=== PATIENT | female | born 1990 ===

== ENCOUNTER 2022-02-15 15:44 | Inpatient (IN) ==
[~2022-02-15] VITALS: Ht 167.6 cm; Wt 87.1 kg
[2022-02-15 16:24] VITALS: BP 111/65
[2022-02-15] MEDS ORDERED: KP P1TAB PO (16:37)
[2022-02-15] MEDS ORDERED: HOME MED LIST COMPLETE! XX SCH (16:40)
[2022-02-15] MEDS ORDERED: OXYTOCIN DRIP 30 UNITS in IV 1 EA IV PRN ×4 (17:25)
[2022-02-15] MEDS: LR 1,000 ML IV SCH (18:15)
[2022-02-15] MEDS: miSOPROStol 25MCG 1/4 TABLET PO SCH ×2 (18:15→22:43)
[2022-02-15 18:16] VITALS: BP 129/71
[2022-02-15 18:31] LABS: HEMOGLOBIN 11.4 g/dl (12.0-15.5); MEAN CORPUSCULAR HEMOGLOBIN 26.8 pg (27.0-33.0); MEAN CORPUSCULAR HGB CONC 32.6 g/dl (32.0-36.5); MEAN CORPUSCULAR VOLUME 82.2 fl (80.0-96.0); PLATELET COUNT, AUTOMATED 299 10^3/uL (150-450); RED BLOOD COUNT 4.26 10^6/uL (4.00-5.40); WHITE BLOOD COUNT 9.8 10^3/uL (4.0-10.0)
[2022-02-15 21:24] VITALS: BP 138/86
[2022-02-15 23:44] VITALS: BP 149/65
[2022-02-16] VITALS (12 sets, daily range): BP systolic 102–140; BP diastolic 50–86
[2022-02-16] MEDS: LR 1,000 ML IV SCH ×3 (05:11→21:05)
[2022-02-16] MEDS: miSOPROStol 25MCG 1/4 TABLET PO SCH (06:53)
[2022-02-16] MEDS: miSOPROStol 50MCG 1/2 TABLET PO SCH ×4 (10:34→22:19)
[2022-02-17] VITALS (25 sets, daily range): BP systolic 97–173; BP diastolic 53–100
[2022-02-17] MEDS: miSOPROStol 50MCG 1/2 TABLET PO SCH (02:25)
[2022-02-17] MEDS: LR 1,000 ML IV SCH ×3 (04:20→17:25)
[2022-02-17] MEDS ORDERED: OXYTOCIN DRIP 30 UNITS in IV 1 EA IV SCH (08:50)
[2022-02-18] MEDS: LR 1,000 ML IV SCH (01:25)
[2022-02-18 02:56] VITALS: BP 125/59
[2022-02-18 07:05] VITALS: BP 111/73
[2022-02-18 08:48] VITALS: BP 124/70
== END 2022-02-18 10:10 | disposition home or self-care (01) | DRG 833 ==
LOC: M LDI 15:44
PROVIDERS: ADMIT Obstetrics & Gynecology; ATTEND Obstetrics & Gynecology
PROC: 3E0P7GC Introduction of Other Therapeutic Substance into Female Reproductive, Via Natural or Artificial Opening (ICD-10-PCS; principal; 2022-02-15)
DX: O41.03X0 Oligohydramnios, third trimester, not applicable or unspecified (principal); Z3A.39 39 weeks gestation of pregnancy; O61.0 Failed medical induction of labor

== ENCOUNTER 2022-02-20 14:38 | Inpatient (IN) | payer OTHER ==
[2022-02-20] VITALS (8 sets, daily range): BP systolic 107–140; BP diastolic 57–76
[~2022-02-20] VITALS: Ht 167.6 cm; Wt 86.0 kg
[~2022-02-20 14:38] MED LIST: KP P1TAB PO
[2022-02-20] MEDS ORDERED: LACTATED RINGER'S 1000 ML IV STA (15:28)
[2022-02-20] MEDS ORDERED: miSOPROStol 50MCG 1/2 TABLET PO ONE (15:30)
[2022-02-20] MEDS ORDERED: TRANEXAMIC ACID INJection 1,000 MG in NS 100 ML IV PRN (15:30)
[2022-02-20] MEDS ORDERED: LIDOCAINE 1% MDV 20ML VIAL INFIL PRN (15:30)
[2022-02-20] MEDS ORDERED: OXYTOCIN DRIP 30 UNITS in IV 1 EA IV PRN ×6 (15:30)
[2022-02-20] MEDS ORDERED: CARBOPROST TROMETHAMINE 250 MCG/ML AMP IM PRN (15:30)
[2022-02-20] MEDS ORDERED: OXYTOCIN INJ 10 UNITS/ML VIAL (J2590) IM PRN (15:30)
[2022-02-20] MEDS ORDERED: OXYTOCIN INJ 10 UNITS/ML VIAL (J2590) IV PRN (15:30)
[2022-02-20] MEDS ORDERED: METHYLERGONOVINE MALEATE 0.2 MG/ML VIAL (J2210) IM PRN (15:30)
[2022-02-20 16:02] LABS: HEMATOCRIT 33.4 % (36.0-47.0); HEMOGLOBIN 10.9 g/dl (12.0-15.5); MEAN CORPUSCULAR HGB CONC 32.6 g/dl (32.0-36.5); MEAN CORPUSCULAR VOLUME 82.7 fl (80.0-96.0); PLATELET COUNT, AUTOMATED 295 10^3/uL (150-450); RED BLOOD COUNT 4.04 10^6/uL (4.00-5.40); WHITE BLOOD COUNT 8.6 10^3/uL (4.0-10.0)
[2022-02-20] MEDS ORDERED: HOME MED LIST COMPLETE! XX SCH (16:20)
[2022-02-20] MEDS: LR 1,000 ML IV SCH ×2 (19:11→20:24)
[2022-02-20] MEDS: miSOPROStol 50MCG 1/2 TABLET PO SCH (20:14)
[2022-02-21] VITALS (18 sets, daily range): BP systolic 103–152; BP diastolic 51–80
[2022-02-21] MEDS: miSOPROStol 50MCG 1/2 TABLET PO SCH ×5 (00:21→16:00)
[2022-02-21] MEDS: LR 1,000 ML IV SCH ×4 (00:24→21:03)
[2022-02-21] MEDS ORDERED: BUTORPHANOL 2 MG/ML INJ (J0595) IV ONE (08:25)
[2022-02-21] MEDS ORDERED: PROMETHAZINE 25MG/ML 1ML VIAL IV ONE (08:25)
[2022-02-21] MEDS ORDERED: OXYTOCIN DRIP 30 UNITS in IV 1 EA IV SCH (19:40)
[2022-02-22] VITALS (43 sets, daily range): BP systolic 105–203; BP diastolic 54–98
[2022-02-22] MEDS: LR 1,000 ML IV SCH ×3 (03:33→13:43)
[2022-02-22] MEDS ORDERED: EPIDURAL COMMENT XX SCH (09:51)
[2022-02-22] MEDS ORDERED: diphenhydrAMINE 50MG/ML VIAL (J1200) IV PRN (09:51)
[2022-02-22] MEDS ORDERED: FENTANYL/ROPIVACAINE/NACL BAG 100 ML EPIDURAL SCH (09:51)
[2022-02-22] MEDS ORDERED: NALOXONE INJ 0.4MG/1ML VIAL (J2310 PER 1MG) IV PRN (09:51)
[2022-02-22] MEDS ORDERED: FENTANYL 2MCG/ML ROPIVACAINE 0.2% IN 0.9% NACL 100ML IVBAG As Ordered ONE (09:51)
[2022-02-22] MEDS ORDERED: REFRIGERATOR IV KEYS XX PRN (09:51)
[2022-02-22] MEDS ORDERED: EPIDURAL/PCA KEYS XX PRN (09:51)
[2022-02-22] MEDS ORDERED: LACTATED RINGER'S 1000 ML IV PRN (09:51)
[2022-02-22] MEDS ORDERED: ePHEDrine SULFATE 25 MG/5 ML(5MG/ML) SYRINGE IV PRN (09:51)
[2022-02-22 13:55] LABS: HEMATOCRIT 33.2 % (36.0-47.0); HEMOGLOBIN 10.7 g/dl (12.0-15.5); MEAN CORPUSCULAR HEMOGLOBIN 26.3 pg (27.0-33.0); MEAN CORPUSCULAR HGB CONC 32.2 g/dl (32.0-36.5); MEAN CORPUSCULAR VOLUME 81.6 fl (80.0-96.0); PLATELET COUNT, AUTOMATED 274 10^3/uL (150-450); RED BLOOD COUNT 4.07 10^6/uL (4.00-5.40); WHITE BLOOD COUNT 10.8 10^3/uL (4.0-10.0)
[2022-02-22 14:20] LABS: TOTAL PROTEIN,RANDOM URINE 9.1 MG/DL (0.0-12.0)
[2022-02-22 14:30] LABS: ALBUMIN 2.7 GM/DL (3.2-5.2); ALT/SGPT 9 U/L (12-78); BILIRUBIN,TOTAL 0.2 MG/DL (0.2-1.0); BLOOD UREA NITROGEN 6 MG/DL (7-18); CALCIUM LEVEL 8.4 MG/DL (8.5-10.1); CARBON DIOXIDE LEVEL 20 MEQ/L (21-32); CHLORIDE LEVEL 106 MEQ/L (98-107); CREATININE FOR GFR 0.67 MG/DL (0.55-1.30); GLOMERULAR FILTRATION RATE > 60.0 (>60); GLUCOSE, FASTING 75 MG/DL (70-100); POTASSIUM SERUM 3.5 MEQ/L (3.5-5.1); SODIUM LEVEL 136 MEQ/L (136-145); TOTAL PROTEIN 6.1 GM/DL (6.4-8.2)
[2022-02-22] MEDS ORDERED: DIBUCAINE 1% OINTMENT 30GM TOP PRN (15:45)
[2022-02-22] MEDS ORDERED: ANUSOL HC CREAM 30GM TOP PRN (15:45)
[2022-02-22] MEDS ORDERED: ONDANSETRON 4MG/2ML VIAL IV PRN (15:45)
[2022-02-22] MEDS ORDERED: MEASLES,MUMPS,RUBELLA VACCINE INJ (MMR-II) (90707) SC SCH (15:45)
[2022-02-22] MEDS ORDERED: MOM 30ML SUSPENSION UDC PO PRN (15:45)
[2022-02-22] MEDS: IBUPROFEN 800 MG TAB PO PRN (19:43)
[2022-02-22] MEDS: ACETAMINOPHEN 500 MG TAB PO PRN (23:55)
[2022-02-23] MEDS: DOCUSATE SODIUM 100MG CAPSULE PO PRN (05:53)
[2022-02-23] MEDS: IBUPROFEN 800 MG TAB PO PRN ×2 (05:54→13:58)
[2022-02-23 06:00] VITALS: BP 132/63
[2022-02-23] MEDS: PRENATAL VITAMINS CHEWABLE TABLET PO SCH (13:57)
[2022-02-23 18:00] VITALS: BP 111/59
[2022-02-24] MEDS: IBUPROFEN 800 MG TAB PO PRN ×2 (00:52→11:21)
[2022-02-24 05:32] VITALS: BP 113/66
[2022-02-24] MEDS ORDERED: IBUP80TA PO (06:19)
[2022-02-24] MEDS ORDERED: COLA100C5 PO (06:19)
[2022-02-24] MEDS ORDERED: ACET-683 PO (06:19)
[2022-02-24] MEDS: PRENATAL VITAMINS CHEWABLE TABLET PO SCH (09:31)
[2022-02-24 18:00] VITALS: BP 110/63
[2022-02-24] MEDS: DOCUSATE SODIUM 100MG CAPSULE PO PRN (18:53)
[2022-02-24] MEDS: ACETAMINOPHEN 500 MG TAB PO PRN (18:54)
== END 2022-02-24 19:00 | disposition home or self-care (01) | DRG 807 ==
LOC: M LDI 14:38 → M OBS 02-22 18:25
PROVIDERS: ADMIT Obstetrics & Gynecology; ATTEND Obstetrics & Gynecology
PROC: 3E0DXGC Introduction of Other Therapeutic Substance into Mouth and Pharynx, External Approach (ICD-10-PCS; 2022-02-21)
PROC: 3E0P7VZ Introduction of Hormone into Female Reproductive, Via Natural or Artificial Opening (ICD-10-PCS; 2022-02-21)
PROC: 10E0XZZ Delivery of Products of Conception, External Approach (ICD-10-PCS; principal; 2022-02-22)
PROC: 0KQM0ZZ Repair Perineum Muscle, Open Approach (ICD-10-PCS; 2022-02-22)
PROC: 0HQ9XZZ Repair Perineum Skin, External Approach (ICD-10-PCS; 2022-02-22)
PROC: 3E033VJ Introduction of Other Hormone into Peripheral Vein, Percutaneous Approach (ICD-10-PCS; 2022-02-22)
DX: O13.4 Gestational [pregnancy-induced] hypertension without significant proteinuria, complicating childbirth (principal); Z37.0 Single live birth; Z3A.40 40 weeks gestation of pregnancy; O70.1 Second degree perineal laceration during delivery; O70.0 First degree perineal laceration during delivery